=== PATIENT | female | born 1960 | race Caucasian/White ===

== ENCOUNTER 2021-03-03 07:08 | Day surgery (SDC) | payer BC ==
[2021-03-03] MEDS ORDERED: LACTATED RINGERS 1,000 ML IV ONE ×2 (07:49→09:28)
--- NOTE | 2021-03-03 08:07 | ANESTHESIA ---
Pre-Anesthesia VS, & Labs - Diagnosis pos cologuard - Procedure colonoscopy Vital Signs: Temp Pulse Resp BP Pulse Ox 36.9 C 85 18 136/92 H 100 03/03/21 07:34 03/03/21 07:34 03/03/21 07:34 03/03/21 07:34 03/03/21 07:34 Height: 5 ft 6 in Weight (kg): 80.9 kg Body Mass Index: 28.8 BMI Classification: Overweight - NPO >8 hours - Is Patient ?: No Home Medications and Allergies Home Medications: Ambulatory Orders Alprazolam [Xanax] 0.5 mg ORAL DAILY PRN 03/02/21 Bupropion HCl [Wellbutrin Xl] 300 mg ORAL DAILY 03/02/21 Omeprazole Magnesium 20 mg PO DAILY 03/02/21 diazePAM [Valium] 5 mg ORAL DAILY PRN 03/02/21 Alprazolam [Xanax] 0.5 mg ORAL DAILY PRN 03/02/21 Bupropion HCl [Wellbutrin Xl] 300 mg ORAL DAILY 03/02/21 Omeprazole Magnesium 20 mg PO DAILY 03/02/21 diazePAM [Valium] 5 mg ORAL DAILY PRN 03/02/21 Allergies/Adverse Reactions: Allergies Allergy/AdvReac Type Severity Reaction Status Date / Time No Known Drug Allergies Allergy Verified 03/02/21 10:51 Anes History & Medical History - Anesthetic History Anesthesia Complications: reports: No previous complications Family history of Anesthesia Complications: Denies Family history of Malignant Hyperthermia: Denies - Medical History Cardiovascular: reports: None Pulmonary: reports: None Gastrointestinal: reports: GERD Urinary: reports: Incontinence Musculoskeletal: reports: Osteoarthritis Endocrine/Autoimmune: reports: None Skin: reports: None Psychosocial: reports: Anxiety - Surgical History General: reports: Other Eyes Ears Nose Throat (EENT): reports: Tonsil/Adenoidectomy Gynecologic: reports: Other Orthopedic: reports: Knee replacement, Other Exam General: Alert, Oriented x3, Cooperative Dental: WNL Mouth Openin Fingerbreadth Mallampati classification: II Thyromental Distance: 4-6 cm Respiratory: Lungs clear Cardiovascular: Regular rate Plan Anesthesia Type: Total IV Consent for Procedure(s) Verified and Reviewed: Yes Code Status: Attempt Resuscitation ASA classification: 2-Mild systemic disease Is this case an emergency?: No
[2021-03-03] MEDS ORDERED: PROPOFOL 500 MG/50 ML 500 MG/50 ML VIAL ONE ×2 (08:17→08:57)
[2021-03-03] MEDS ORDERED: MIDAZOLAM 2 MG/2 ML VIAL ONE (08:17)
[2021-03-03 09:51] VITALS: BP 115/69
--- NOTE | 2021-03-03 14:47 | ANESTHESIA POST OP EVALUATION ---
Anesthesia Post Eval - Post Anesthesia Eval Vitals: Last Vital Signs Temp 36.7 C 03/03/21 09:50 Pulse 78 03/03/21 09:50 Resp 16 03/03/21 09:50 BP 115/69 03/03/21 09:50 Pulse Ox 98 03/03/21 09:50 CV Function Including HR & BP: Stable Pain Control: Satisfactory Nausea & Vomiting: Negative Mental Status: Baseline Respiratory Status: Airway Patent Hydration Status: Satisfactory Anesthesia Complications: None
== END 2021-03-03 07:09 | disposition home or self-care (01) ==
LOC: SDS 07:08
PROVIDERS: ATTEND Surgery
PROC: 0DBP8ZZ Excision of Rectum, Via Natural or Artificial Opening Endoscopic (ICD-10-PCS; principal; 2021-03-03 12:45)
DX: D12.8 Benign neoplasm of rectum (principal); K21.9 Gastro-esophageal reflux disease without esophagitis; Z79.899 Other long term (current) drug therapy; F41.8 Other specified anxiety disorders; R32 Unspecified urinary incontinence; Z87.891 Personal history of nicotine dependence
CPT/HCPCS: 45385; J7120

== ENCOUNTER 2021-03-04 07:39 | Emergency (ER) | payer BC ==
[2021-03-04] MEDS ORDERED: KETOROLAC 60 MG/2 ML VIAL IM STA (08:01)
--- NOTE | 2021-03-04 08:16 | ED Physician Documentation ---
PD HPI UPPER EXT INJURY - Stated complaint Stated Complaint: R WRIST PX - Chief complaint Chief Complaint: Ext Problem - History obtained from History obtained from: Patient - History of Present Illness Location: Right, Hand Type of injury: Blunt / blow Where injury occurred: Street Timing - onset: How many days ago (3) Timing - duration: Days (3) Timing - details: Gradual onset, Still present Improved by: Rest, Immobilization Worsened by: Moving, Palpating Associated symptoms: Swelling. No: Weakness, Numbness Contributing factors: No: Anticoagulated Similar symptoms before: Has not had sx before Recently seen: Not recently seen - Additonal information Additional information: Previously well 60-year-old female is complaining of some pain to the ulnar aspect of her right hand. She reports that she was walking her dog a large [place] with a dog banged his head against her hand. She did not feel that this injured her much at the time. The day following that she began to experience more and more pain in her hand and last night she was unable to sleep secondary to 10 out of 10 pain with any movement of her hand. She has mild swelling and the point tenderness is over the proximal fifth metacarpal. She does have some pain with movement of her wrist and her fourth and fifth digits but not with movement of the rest of the digits. She has not otherwise been ill recently. She has not had episodes of this previously. Review of Systems Constitutional: denies: Fever Eyes: denies: Decreased vision Ears: denies: Ear pain Nose: denies: Congestion Throat: denies: Sore throat Cardiac: denies: Chest pain / pressure Respiratory: denies: Cough GI: denies: Vomiting PD PAST MEDICAL HISTORY - Past Medical History Past Medical History: Yes Cardiovascular: None Respiratory: None Endocrine/Autoimmune: None GI: GERD CRITICAL CARE UNIT MANAGER: None : Incontinence HEENT: None Psych: Depression, Anxiety Musculoskeletal: Osteoarthritis Derm: None Other Past Medical History: new right wrist pain - Past Surgical History Past Surgical History: Yes General: Other Ortho: Knee replacement, Other /CRITICAL CARE UNIT MANAGER: Other HEENT: Tonsil/Adenoidectomy - Present Medications Home Medications: Ambulatory Orders Medication Instructions Recorded Confirmed Alprazolam [Xanax] 0.5 mg ORAL DAILY PRN 03/02/21 03/04/21 Bupropion HCl [Wellbutrin Xl] 300 mg ORAL DAILY 03/02/21 03/04/21 Omeprazole Magnesium 20 mg PO DAILY 03/02/21 03/04/21 diazePAM [Valium] 5 mg ORAL DAILY PRN 03/02/21 03/04/21 HYDROcod/ACETAM 5/325 [Addison 5/325] 1 - 2 tablet PO Q6H PRN #14 tablet 03/04/21 - Allergies Allergies/Adverse Reactions: Allergies Allergy/AdvReac Type Severity Reaction Status Date / Time No Known Drug Allergies Allergy Verified 03/04/21 07:48 - Social History Does the pt smoke?: No Smoking Status: Never smoker Does the pt drink ETOH?: Yes ETOH Use: Wine Does the pt have substance abuse?: No Substance Use and Type: Marijuana - Immunizations Immunizations are current?: Yes - POLST Patient has POLST: No PD ED PE NORMAL - Vitals Vital signs reviewed: Yes - General General: Alert and oriented X 3, Well developed/nourished, Other (tears come up when describing the pain of the night last night. ) - HEENT HEENT: Atraumatic, PERRL, EOMI - Respiratory Respiratory: No respiratory distress - Derm Derm: Normal color, Warm and dry, No rash - Extremities Extremities: No deformity, No edema, Other (specific point tenderness to the right hand over the proximal 5th MC. Not to the joint and no tenderness to anatomic snuff box. distal n/v intact. ) - Neuro Neuro: Alert and oriented X 3, cargo bracer 2-12 intact, No motor deficit, No sensory deficit, Normal speech Eye Opening: Spontaneous Motor: Obeys Commands Verbal: Oriented GCS Score: 15 - Psych Psych: Normal mood, Normal affect Results - Vitals Vitals: Vital Signs - 24 hr 03/04/21 07:44 Temperature 36.6 C Heart Rate 97 Respiratory 18 Rate Blood Pressure 136/78 H O2 Saturation 94 Oxygen O2 Source Room air - Rads (name of study) hand R Radiology: Prelim report reviewed (Impression: No displaced fracture can be seen involving the fifth metacarpal), EMP read indepedently, See rad report Procedures - Splint (location) right hand Splint applied by: Tech Type of splint: Fiberglass, Ulnar gutter Other: Patient tolerated well, No complications, Neurovascular intact, Good alignment PD MEDICAL DECISION MAKING - ED course Complexity details: reviewed results, re-evaluated patient, considered differential, d/w patient ED course: 60-year-old female with a contusion to her right hand is placed into an ulnar gutter splint for comfort. Departure - Departure Disposition: 01 Home, Self Care Clinical Impression: Contusion of right hand Qualifiers: Encounter type: initial encounter Qualified Code(s): S60.221A - Contusion of right hand, initial encounter Condition: Stable Instructions: ED Contusion Hand Follow-Up: Ct Kearns ARNP [Primary Care Provider] - Rodolfo Ronquillo MD [Provider Admit Priv/Credential] - Prescriptions: HYDROcod/ACETAM 5/325 [Addison 5/325] 1 - 2 tablet PO Q6H PRN #14 tablet PRN Reason: Pain
--- NOTE | 2021-03-04 08:29 | XRAY Report ---
PROCEDURE: Hand 3 View RT INDICATIONS: pain to the proximal 5th MC TECHNIQUE: 3 views of the hand(s) acquired. COMPARISON: None FINDINGS: Bones: In this patient with this given history, scrutiny is given to the fifth metacarpal. No fractu res or dislocations can be seen at this site. No fractures or dislocations are seen elsewhere. No suspicious bony lesions. Degenerative changes are seen throughout, particularly involving the distal interphalangeal joints an d the radial aspect of the carpus. Soft tissues: No suspicious soft tissue calcifications. IMPRESSION: No displaced fracture can be seen involving the fifth metacarpal. Please correlate with focal tenderness. If there is point tenderness (or other clinical concern for a fracture not seen on these plain films) then please consider a dedicated CT study or a short term fo llow up plain film series for further evaluation. Age-appropriate degenerative changes are seen. Reviewed by: Beau Robles MD on 03/04/2021 7:28 AM SVETLANA Approved by: Beau Robles MD on 03/04/2021 7:28 AM SVETLANA Station ID: [id number]
[2021-03-04 08:44] VITALS: BP 130/70
== END 2021-03-04 08:46 | disposition home or self-care (01) ==
LOC: ED 07:39
DX: S60.221A Contusion of right hand, initial encounter (principal); W54.1XXA Struck by dog, initial encounter; Y93.K1 Activity, walking an animal; Y92.410 Unspecified street and highway as the place of occurrence of the external cause
CPT/HCPCS: 29125; 99283; 99284

== ENCOUNTER 2021-07-14 07:25 | Outpatient (CLI) | payer BC ==
[2021-07-14 08:14] LABS: BASOPHILS % (AUTO) 0.4 %; EOSINOPHILS # (AUTO) 0.1 10^3/uL (0.0-0.7); EOSINOPHILS % (AUTO) 1.8 %; HCT - HEMATOCRIT 44.7 % (37.0-47.0); HGB - HEMOGLOBIN 15.1 g/dL (12.0-16.0); LYMPHOCYTES # (AUTO) 1.5 10^3/uL (1.5-3.5); LYMPHOCYTES % (AUTO) 32.7 %; MEAN CORPUSCULAR HEMOGLOBIN 31.1 pg (27.0-31.0); MEAN CORPUSCULAR HGB CONC 33.8 g/dL (32.0-36.0); MEAN CORPUSCULAR VOLUME 92.2 fL (81.0-99.0); MEAN PLATELET VOLUME 9.8 fL (7.9-10.8); MONOCYTES # (AUTO) 0.4 10^3/uL (0.0-1.0); MONOCYTES % (AUTO) 8.3 %; NEUTROPHILS # (AUTO) 2.5 10^3/uL (1.5-6.6); NEUTROPHILS % (AUTO) 56.8 %; PLT - PLATELET COUNT 242 10^3/uL (130-450); RED BLOOD COUNT 4.85 10^6/uL (4.20-5.40); RED CELL DISTRIBUTION WIDTH 12.2 % (12.0-15.0); WHITE BLOOD COUNT 4.5 x10^3/uL (4.8-10.8)
[2021-07-14 08:34] LABS: ALBUMIN 4.5 g/dL (3.2-5.5); ALBUMIN/GLOBULIN RATIO 1.5 (1.0-2.2); ALKALINE PHOSPHATASE 78 IU/L (42-121); ALT ALANINE AMINOTRANSFERASE 35 IU/L (10-60); AST ASPARTATE AMINOTRANSFERASE 31 IU/L (10-42); BILIRUBIN,TOTAL 0.8 mg/dL (0.2-1.0); BUN - BLOOD UREA NITROGEN 17 mg/dL (6-20); CARBON DIOXIDE - CO2 27 mmol/L (21-32); CHLORIDE 105 mmol/L (101-111); CHOL/HDL RATIO 2.9 (<4.4); CHOLESTEROL 224 mg/dL; CREATININE 0.8 mg/dL (0.4-1.0); GFR - MDRD 73 (>89); GLUCOSE 111 mg/dL (70-100); HDL CHOLESTEROL 76 mg/dL; LDL CHOLESTEROL,CALCULATED 139 mg/dL; LDL/HDL RATIO 1.8 (<4.4); POTASSIUM 4.2 mmol/L (3.5-5.0); SODIUM 138 mmol/L (135-145); TOTAL PROTEIN 7.5 g/dL (6.7-8.2); TRIGLYCERIDES 45 mg/dL; VLDL CHOLESTEROL 9 mg/dL
[2021-07-14 08:41] LABS: THYROID STIMULATING HORMONE 3.29 uIU/mL (0.34-5.60)
[2021-07-15 13:51] LABS: HEPATITIS C ANTIBODY NON-REACTIVE (NON-REACTIVE)
== END 2021-07-14 07:26 | disposition home or self-care (01) ==
LOC: LAB 07:25
PROVIDERS: ATTEND Registered Nurse
DX: Z01.84 Encounter for antibody response examination (principal); Z13.228 Encounter for screening for other metabolic disorders; Z13.220 Encounter for screening for lipoid disorders; Z13.29 Encounter for screening for other suspected endocrine disorder; Z13.0 Encounter for screening for diseases of the blood and blood-forming organs and certain disorders involving the immune mechanism; F19.20 Other psychoactive substance dependence, uncomplicated
CPT/HCPCS: 36415; 80053; 80061; 80307; 80329; 80345; 80369; 80375; 81599; 83721; 84443; 85025; 86803

== ENCOUNTER 2021-10-31 14:36 | Outpatient (CLI) | payer BC ==
--- NOTE | 2021-11-07 12:40 | Mammography Report ---
BILATERAL DIGITAL SCREENING MAMMOGRAM 3D/2D: 10/31/2021 CLINICAL: Routine screening. No prior exams were available for comparison. There are scattered fibroglandular elements in both br easts. No significant masses, calcifications, or other findings are seen in either breast. IMPRESSION: NEGATIVE There is no mammographic evidence of malignancy. A 1 year screening mammogram is recommended. This exam was interpreted at Station ID: [id number]. NOTE: For mammograms, a report in lay terms will be sent to the patient. Approximately 15% of breast malignancies will not be visualized mammographically. In the management of a palpable breast mass, a negative mammogram must not discourage biopsy of a clinically suspicious lesion. Electronically Signed By: Eric ham/penrad:11/07/2021 12:30:07 ACR BI-RADS Category 1: Negative 3341F PARENCHYMAL PATTERN: (A) - The breast(s) demonstrate(s) scattered fibroglandular densities. BI-RADS CATEGORY: (1) - 1 RECOMMENDATION: (ANNUAL) - Recommend routine annual screening mammography. [id number] 1 year screening LATERALITY: (B)
== END 2021-10-31 14:37 | disposition home or self-care (01) ==
LOC: DI.N 14:36
PROVIDERS: ATTEND Internal Medicine
DX: Z12.31 Encounter for screening mammogram for malignant neoplasm of breast (principal)

== ENCOUNTER 2022-11-23 09:40 | Outpatient (CLI) | payer BC ==
--- NOTE | 2022-11-23 11:25 | Ultrasound Report ---
PROCEDURE: Abdomen Limited INDICATIONS: ELEVATED LIVER ENZYMES TECHNIQUE: Real-time focused scanning was performed of the abdomen, with image documentation. COMPARISONS: None. FINDINGS: Liver: Increased liver echogenicity, commonly mild hepatic steatosis. Gallbladder: Unremarkable. Biliary ducts: Intrahepatic bile ducts are non-dilated. Extrahepatic bile duct caliber measures 4.1 mm. Normal is 6-7 mm or less in diameter, or 10 mm or less post-cholecystectomy. Pancreas: Visualized portions of the pancreas are sonographically normal. Right kidney: Normal in size and echotexture. Right kidney measures 11.1 cm long. No hydronephrosis or nephrolithiasis. No solid masses. No complex renal cystic lesions which require follow-up. Aorta: Visualized aorta is normal in caliber at less than 3 cm. IVC: Intrahepatic inferior vena cava is patent. Miscellaneous: No free abdominal fluid. IMPRESSION: Cholelithiasis without sonographic evidence of acute cholecystitis. Increased liver echogenicity, commonly caused by hepatic steatosis. Reviewed by: Yoseph Bradford on 11/23/2022 11:24 AM PDT Approved by: Yoseph Bradford on 11/23/2022 11:24 AM PDT Station ID: [id number]
== END 2022-11-23 09:41 | disposition home or self-care (01) ==
LOC: DI 09:40
PROVIDERS: ATTEND Internal Medicine
DX: R74.01 Elevation of levels of liver transaminase levels (principal); K80.20 Calculus of gallbladder without cholecystitis without obstruction

== ENCOUNTER 2022-11-23 09:42 | Outpatient (CLI) | payer BC ==
--- NOTE | 2022-11-23 17:25 | XRAY Report ---
PROCEDURE: Knee 3 View RT INDICATIONS: RIGHT KNEE PAIN TECHNIQUE: 3 views of the right knee(s) were acquired. COMPARISON: None. FINDINGS: Bones: Total right knee arthroplasty in good position. No fracture. Soft tissues: Small knee joint effusion. No suspicious soft tissue calcifications or masses. IMPRESSION: Total right knee arthroplasty in good position. No evidence of fracture or hardware failure. Small sherin int effusion. Reviewed by: Jose Muller MD on 11/23/2022 4:24 PM AKDT Approved by: Jose Muller MD on 11/23/2022 4:24 PM AKDT Station ID: [id number]
== END 2022-11-23 09:43 | disposition home or self-care (01) ==
LOC: DI 09:42
PROVIDERS: ATTEND Internal Medicine
DX: M25.561 Pain in right knee (principal); M25.461 Effusion, right knee; Z96.651 Presence of right artificial knee joint; R74.01 Elevation of levels of liver transaminase levels; K80.20 Calculus of gallbladder without cholecystitis without obstruction